=== PATIENT | male | born 1985 | race Caucasian/White ===

== ENCOUNTER 2022-09-19 08:42 | Emergency (ER) | payer OTHER, SELFPAY ==
--- NOTE | ~2022-09-19 | XR_ITS ---
EXAMINATION: XR chest 2V CLINICAL INFORMATION: Cough COMPARISON: No prior chest x-ray available in our system for comparison at the time of this dictation. TECHNIQUE: XR chest 2V Lungs and Rona: Both lungs are clear. Pleura: Normal. Costophrenic angles are sharp. No pneumothorax. Heart: The heart is normal in size. Mediastinum: The mediastinum is within normal limits.. Bones: Skeletal structures included are normal for patient's age. XR/XR chest 2V IMPRESSION: No radiographic evidence of acute cardiopulmonary disease.
[2022-09-19 08:58] VITALS: BP 130/86; PULSE 72; RESP 24; TEMP 36.7; O2SAT 98
--- NOTE | 2022-09-19 09:48 | ED_ITS ---
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 elicited complaint: shortness of breath and cough Onset (ago): week(s) Timing: intermittent Severity: mild Exacerbating factors: coughing Known history of: asthma Related Data Previous Rx's Medication Instructions Recorded albuterol sulfate 2.5 mg/3 mL 2.5 mg (3 mL) inhalation Q4-6H PRN 09/19/22 (0.083 %) solution for nebulization shortness of breath or wheezing #180 mL prednisone 20 mg tablet 60 mg PO DAILY #12 tabs 09/19/22 Allergies Allergy/AdvReac Type Severity Reaction Status Date / Time No Known Allergies Allergy Verified 09/19/22 12:09 Review of Systems Review of Systems: Yes all other systems are reviewed and are negative Cardiovascular: Cardiovascular: Reports dyspnea Respiratory: Respiratory: Reports cough, Reports pain with cough and Reports dyspnea Neurologic: Denies Sensory deficit (Neuro) [facility] Social History Social History Alcohol intake: never Smoked in Last 30 Days: Yes Use of substances other than those prescribed or required for medical reasons: Yes Substance Use Type: Crack/Cocaine and Marijuana Last Used Substance: Weeks (ago) Advance Directives: No Advance Directives Information Provided: Yes Physical Exam Vital Signs: Vital Signs: Last Vital Signs Temp 98.1 F 09/19/22 09:52 Pulse 74 09/19/22 10:50 Resp 15 09/19/22 10:50 BP 140/91 H 09/19/22 09:52 Pulse Ox 96 09/19/22 09:52 O2 Del Method Room Air 09/19/22 09:52 BMI result Body Mass Index 24.4 Const: General: healthy appearing Nutritional Appearance: average body habitus Orientation/consciousness: oriented to person and patient oriented x3 Limitations: no limitations HEENT: Head: Yes normal to inspection Ears: external ears normal General nose exam: Normal external nose present Mouth: Normal oral and palatal mucosa present and oropharynx normal Throat: Yes posterior oropharynx normal Eyes: General: appearance normal, both eyes and all related structures Neck: Other: supple Neck: Yes normal visual inspection Chest: Chest palpation & inspection: normal inspection of the chest Resp: Other: diffuse wheezing Cardio: Jugular venous distension: no JVD Rate: regular rate Rhythm: regular rhythm Heart sounds: S1 normal heart sound present and S2 normal heart sound present GI: Inspection: Yes normal to inspection Palpation (GI): Soft to palpation, nontender and No hepatosplenomegaly present Auscultation: normal bowel sounds : General: Yes no CVA tenderness Back/Spine/Pelvis: Back: no CVA tenderness Skin: General skin exam: no rashes or lesions noted Neuro: General: oriented to person and patient oriented x3 Cranial nerves: Yes CN's II-XII intact bilaterally Motor exam (neuro): 5/5 motor strength present throughout Sensory Exam: No Sensory deficit (Neuro) Extrem: General: Yes normal to inspection Psych: Appearance: grossly normal Course Reevaluation(s) Reevaluation #1: patient breathing better will dc home on albuterol and prednisone refusing detox at this time Time: 12:14 Medications Administered Discontinued Medications Generic Name Dose Route Start Last Admin Trade Name Freq PRN Reason Stop Dose Admin Albuterol/Ipratropium 3 ml 09/19/22 09:50 09/19/22 10:49 Albuterol/Iprat 2.5/0.5mg 3 Ml Ampul.Neb INHALE 09/19/22 09:51 3 ml ONCE ONE Administration Medical Decision Making Differential Diagnosis Differential Diagnoses: The differential diagnosis associated with the presentation includes (asthma, pneumothorax, pneumonitis, pneumomediastinum, lung injury were all considered in this man with cocaine abuse) Consult Healthcare Provider Substance abuse team conuslted on the patient Independent Interpretation I performed an independent interpretation of an: Plain X-Ray (no infiltrate or ptx) Social Determinants Patient?s care significantly limited by Social Determinants of Health including: Alcoholism and drug addiction in family Discharge Plan Discharge Clinical Impression: Asthma with exacerbation Patient Disposition: Home, Self-Care Instructions: Asthma (ED) Prescriptions: New prednisone 20 mg tablet 60 mg PO DAILY Qty: 12 0RF albuterol sulfate 2.5 mg /3 mL (0.083 %) solution for nebulization 2.5 mg inhalation Q4-6H PRN (Reason: shortness of breath or wheezing) Qty: 180 0RF Referrals: Marie Goetz MD [Primary Care Provider] - 5 days
--- NOTE | 2022-09-19 09:50 | ECG_ITS ---
Test Reason : CP Blood Pressure : / mmHG Vent. Rate : 070 BPM Atrial Rate : 070 BPM P-R Int : 130 ms QRS Dur : 078 ms QT Int : 372 ms P-R-T Axes : 028 048 049 degrees QTc Int : 401 ms Normal sinus rhythm Normal ECG No previous ECGs available Referred By: Miky Alva Electronically Signed By:TAI HARMON
[2022-09-19 09:52] VITALS: BP 140/91; PULSE 74; RESP 22; TEMP 36.7; O2SAT 96; BMI 24.4
[2022-09-19] MEDS: Albuterol/Iprat 2.5/0.5MG 3 ML AMPUL.NEB INHALE (10:49)
[2022-09-19 10:50] VITALS: PULSE 74; RESP 15; O2SAT 95
--- NOTE | 2022-09-19 11:22 | PC.NURSE ---
Patient presents after a week of coughing that is causing him to have chest pain. Patient is wheezy during triage, provider ordered for patient to get nebulizer treatment. Patient alert and oriented, answering questions appropriately.
--- NOTE | 2022-09-19 11:24 | MHC.RECOVSUP ---
Met with pt in ED 8 for potential ATS. Pt informs he had been struggling with his cocaine use but was able to stop using for the past 2 weeks. Pt does not want residential treatment but is interested in recovery coaches and possibly medication assisted treatment. T/W provided pt with resources to get set up with a motor coach chauffeur and where to go if he wants medication assisted treatment. Pt has no other questions or concerns at this time.
[2022-09-19] MEDS: predniSONE 20 MG TABLET 60 MG PO (12:36)
[2022-09-19 12:44] VITALS: BP 145/84; PULSE 73; RESP 20; O2SAT 97
== END 2022-09-19 12:47 | disposition home or self-care (01) ==
PROVIDERS: Emergency Provider Emergency Medicine; PCP Internal Medicine
DX: R06.02 Shortness of breath (principal); J45.901 Unspecified asthma with (acute) exacerbation; R05.9 Cough, unspecified; R07.89 Other chest pain; F14.10 Cocaine abuse, uncomplicated
CPT/HCPCS: 71046; 93005; 94640; 99284; 99285

== ENCOUNTER 2024-09-29 11:41 | Emergency (ER) | payer MEDICAID, SELFPAY ==
--- NOTE | ~2024-09-29 | XR_ITS ---
CLINICAL HISTORY: atraumatic pain, cracking 4 view right knee Comparison: None Findings: Bones intact. No dislocations. No significant loss of joint space, osteophytes, or erosions. No joint effusion. No radiopaque foreign body. IMPRESSION: 1. No acute findings. This document has been electronically signed by: Amairani Correa MD on 09/29/2024 13:14:23
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
[2024-09-29 11:51] VITALS: BP 123/87; PULSE 80; RESP 16; TEMP 36.9; O2SAT 99; BMI 24.6
[2024-09-29 12:51] VITALS: BP 123/87; PULSE 80; RESP 16; TEMP 36.9; O2SAT 99
== END 2024-09-29 12:52 | disposition home or self-care (01) ==
PROVIDERS: Emergency Provider Emergency Medicine; PCP Internal Medicine
DX: M25.561 Pain in right knee (principal)
CPT/HCPCS: 73564; 99282; 99283

== ENCOUNTER → 2024-09-29 11:53 | Outpatient (BNV) | payer MEDICAID, SELFPAY | PROVIDERS: Emergency Provider Emergency Medicine; PCP Internal Medicine; Visit Provider Radiology Diagnostic Radiology | DX: M25.561 Pain in right knee (principal) | CPT/HCPCS: 73564 ==